=== PATIENT | female | born 1990 | race Caucasian/White ===

== ENCOUNTER 2016-10-14 18:39 | Emergency (ER) | payer SELFPAY ==
[~2016-10-14] VITALS: Ht 167.6 cm; Wt 88.5 kg
--- NOTE | 2016-10-14 19:29 | NUR ---
ROXIE spoke to patient's DOCKWORKER. Patient will drive to [place] [facility] to be evaluated by her. Patient states she is comfortable and does not have any further complaints at this time. Patient discharged in stable conditon. Written and verbal after care instructions given. Patient verbalizes understanding of instructions.
== END 2016-10-14 19:36 | disposition home or self-care (01) ==
LOC: ER 18:39
DX: O9A.213 Injury, poisoning and certain other consequences of external causes complicating pregnancy, third trimester (principal); S16.1XXA Strain of muscle, fascia and tendon at neck level, initial encounter; Z3A.36 36 weeks gestation of pregnancy; V43.92XA Unspecified car occupant injured in collision with other type car in traffic accident, initial encounter; Y93.89 Activity, other specified; Y92.413 State road as the place of occurrence of the external cause; Y99.9 Unspecified external cause status
CPT/HCPCS: 99281; A4663

== ENCOUNTER 2025-01-17 04:36 | Emergency (ER) | payer OTHER ==
[~2025-01-17] VITALS: Ht 170.2 cm; Wt 72.6 kg
[2025-01-17 04:40] VITALS: BP 131/88
[2025-01-17] MEDS ORDERED: ACETAMINOPHEN 500 MG TABLET ONE (05:06)
[2025-01-17] MEDS ORDERED: NEOMY/BACITRA/POLYMYXIN B OINT UD PACKET TP ONE (05:07)
[2025-01-17] MEDS: NEOMY/BACITRA/POLYMYXIN B OINT UD PACKET TP ONE (05:15)
[2025-01-17] MEDS: ACETAMINOPHEN 500 MG TABLET PO ONE (05:15)
[2025-01-17] MEDS ORDERED: LORA10TA64 PO (06:02)
[2025-01-17] MEDS ORDERED: ACET-2605 PO (06:02)
[2025-01-17] MEDS ORDERED: LORATADINE 10 MG TABLET ONE (06:02)
[2025-01-17] MEDS: LORATADINE 10 MG TABLET PO ONE (06:36)
[2025-01-17 06:38] VITALS: BP 131/88; O2SAT 98
== END 2025-01-17 06:41 | disposition home or self-care (01) ==
LOC: ER 04:46
DX: S93.402A Sprain of unspecified ligament of left ankle, initial encounter (principal); S90.512A Abrasion, left ankle, initial encounter; L74.0 Miliaria rubra; Z88.7 Allergy status to serum and vaccine; X50.1XXA Overexertion from prolonged static or awkward postures, initial encounter; Y93.89 Activity, other specified; Y92.89 Other specified places as the place of occurrence of the external cause; Y99.9 Unspecified external cause status
CPT/HCPCS: 73600; A4606; A4663; A9150